=== PATIENT | male | born 1960 | race African-American/Black ===

== ENCOUNTER 2017-08-15 21:58 | Emergency (ER) | payer OTHER ==
[~2017-08-15] VITALS: Ht 185.4 cm; Wt 114.1 kg
[~2017-08-15 21:58] MED LIST: ADVAIR 500/501 DISK IH; ALTOPREV20 MG PO; DIOVAN80 MG PO; FLEXERIL10 MG PO; HYDROCODON-ACE1 EAC7 PO; LISINOPRIL10 MG PO; MOTRIN600 MG PO; MOTRIN800 MG PO; OMEPRAZOLE20 M2 PO; PEN-VEE K,VEET500 MG PO; PREDNISONE10 MG PO; PREDNISONE20 MG PO; PROAIR RESPICL90 MCG IH; SKELAXIN800 MG PO; TYLENOL ARTHRI650 M2 PO; ULTRAM50 MG PO; ZITHROMAX250 MG PO
[2017-08-15 22:42] LABS: HEMATOCRIT 43.3 % (38.0-50.0); MCH 27.7 PG (29.0-34.0); MCHC 31.9 G/DL (30.0-36.0); MCV 86.8 FL (86-99); RBC DIS.WIDTH-CV 12.7 % (11.8-14.6); RED BLOOD COUNT 4.99 M/uL (4.00-5.50); WHITE BLOOD COUNT 6.4 K/uL (4.1-10.2)
[2017-08-15 22:42] LABS: ADD MIUA? NO; BILIRUBIN NEGATIVE; BLOOD NEGATIVE; COLOR YELLOW ((YELLOW)); GLUCOSE (STRIP) NEGATIVE; KETONES NEGATIVE; LEUKOCYTES NEGATIVE; NITRITE NEGATIVE; PROTEIN (STRIP) NEGATIVE; SPECIFIC GRAVITY 1.012 (1.000-1.030); UCUL ADDED? NO; UROBILINOGEN 0.2 MG/DL (0.2-1.0)
[2017-08-15 22:55] LABS: CHLORIDE 104 mEq/L (99-109); POTASSIUM 3.9 mEq/L (3.7-5.4); SODIUM 139 mEq/L (136-147)
[2017-08-15 22:58] LABS: GLUCOSE 116 mg/dL (70-99)
[2017-08-15 22:59] LABS: ANION GAP 9 MEQ/L (2-14); TOTAL BILIRUBIN 0.3 mg/dL (0.0-1.0)
[2017-08-15 23:01] LABS: ALKALINE PHOSPHATASE 70 IU/L (3-129); GFR ESTIMATE (CALCULATED) > 59 mL/min/
[2017-08-15 23:02] LABS: UREA NITROGEN (BUN) 11 mg/dL (9-23)
[2017-08-15 23:04] LABS: LIPASE 187 U/L (1.0-51.0)
[2017-08-15 23:25] LABS: MEAN PLAT.VOLUME 11.9 uM^3 (9.0-12.4); PLAT.SUFFICIENCY ADEQUATE; PLATELET COUNT 201 K/uL (156-360)
[2017-08-16 02:41] LABS: TROP-I INTERPRETATION NEGATIVE; TROPONIN-I < 0.01 ng/mL (0.0-0.30)
[2017-08-16 03:31] VITALS: BP 130/98
== END 2017-08-16 03:25 | disposition home or self-care (01) ==
LOC: EXP 21:58 → EME 21:58 → EXP 08-16 03:25
DX: R10.13 Epigastric pain (principal); I10 Essential (primary) hypertension; J44.9 Chronic obstructive pulmonary disease, unspecified; E78.5 Hyperlipidemia, unspecified; Z98.890 Other specified postprocedural states
CPT/HCPCS: 74177; 80053; 81003; 83690; 84484; 85027; 99281; 99285; J2270; J2405; J7030

== ENCOUNTER 2017-11-09 02:00 | Observation (INO) | payer OTHER ==
[~2017-11-09] VITALS: Ht 188 cm; Wt 109.4 kg
[2017-11-09 02:58] LABS: HEMATOCRIT 43.3 % (38.0-50.0); HEMOGLOBIN 13.9 G/DL (12.5-16.6); MCH 27.4 PG (29.0-34.0); MCHC 32.1 G/DL (30.0-36.0); MCV 85.2 FL (86-99); RBC DIS.WIDTH-CV 13.6 % (11.8-14.6); RBC DIS.WIDTH-SD 42.3 % (39-53); RED BLOOD COUNT 5.08 M/uL (4.00-5.50); WHITE BLOOD COUNT 8.2 K/uL (4.1-10.2)
[2017-11-09 03:00] LABS: PLATELET COUNT 202 K/uL (156-360)
[2017-11-09 03:20] LABS: CHLORIDE 105 MEQ/L (99-109); CREATININE 0.8 MG/DL (0.6-1.3); GFR ESTIMATE (CALCULATED) > 59 mL/min/ (58.99-99999); GLUCOSE 104 mg/dL (70-99); POTASSIUM 3.6 MEQ/L (3.7-5.4); SODIUM 142 MEQ/L (136-147); TROP-I INTERPRETATION NEGATIVE; TROPONIN-I < 0.01 ng/mL (0.0-0.30); UREA NITROGEN (BUN) 15 mg/dL (9-23)
[2017-11-09] MEDS ORDERED: ATROVENT H200 INHALA IH (08:21)
[2017-11-09] MEDS ORDERED: DUONEB 2.5-0.5 M3 ML AEROSOL (08:23)
[2017-11-09] MEDS ORDERED: DELTASONE20 M1 PO (08:23)
[2017-11-09] MEDS ORDERED: VENTOLIN HFA18 GM IH (08:24)
[2017-11-09] MEDS ORDERED: ADVIL,NUPRIN,M200 MG PO (08:25)
[2017-11-09] MEDS ORDERED: ZITHROMAX Z-PA250 MG PO (08:25)
[2017-11-09] MEDS ORDERED: MEVACOR20 MG PO (08:25)
[2017-11-09 10:26] VITALS: BP 149/95
[2017-11-09 16:53] VITALS: BP 140/80
[2017-11-09 18:54] VITALS: BP 128/81
[2017-11-10 00:03] VITALS: BP 134/72
[2017-11-10 03:50] VITALS: BP 133/78
[2017-11-10 06:39] LABS: HEMOGLOBIN 13.1 G/DL (12.5-16.6); MCH 27.1 PG (29.0-34.0); MCHC 31.2 G/DL (30.0-36.0); MCV 86.8 FL (86-99); PLATELET COUNT 197 K/uL (156-360); RBC DIS.WIDTH-CV 13.7 % (11.8-14.6); RBC DIS.WIDTH-SD 44.3 % (39-53); RED BLOOD COUNT 4.84 M/uL (4.00-5.50); WHITE BLOOD COUNT 13.3 K/uL (4.1-10.2)
[2017-11-10 07:02] LABS: CHLORIDE 101 MEQ/L (99-109); CREATININE 0.8 MG/DL (0.6-1.3); GFR ESTIMATE (CALCULATED) > 59 mL/min/ (58.99-99999); POTASSIUM 4.3 MEQ/L (3.7-5.4); SODIUM 139 MEQ/L (136-147); UREA NITROGEN (BUN) 16 mg/dL (9-23)
[2017-11-10 07:05] LABS: GLUCOSE 248 mg/dL (70-99)
[2017-11-10 11:57] VITALS: BP 178/81
[2017-11-10] MEDS ORDERED: LISINOPRIL10 MG PO (13:22)
[2017-11-10] MEDS ORDERED: DULERA 100 MCG/13 GM IH (13:23)
[2017-11-10] MEDS ORDERED: PREDNISONE10 MG PO (13:26)
[2017-11-10 15:47] VITALS: BP 135/89
== END 2017-11-10 17:08 | disposition home or self-care (01) ==
LOC: EME 02:00 → EDOF 08:46 → ENRESERV 08:48 → 5WEST 10:15
PROVIDERS: Emergency Medicine; Internal Medicine
DX: J45.901 Unspecified asthma with (acute) exacerbation (principal); R09.02 Hypoxemia; I10 Essential (primary) hypertension; G47.33 Obstructive sleep apnea (adult) (pediatric); R91.1 Solitary pulmonary nodule
CPT/HCPCS: 71046; 80048; 83880; 84484; 85027; 87502; 93005; 94640; 94640 76; 94644; 94799; 99202; 99281; 99285; G0378; J0456; J1650; J2930; J3475